=== PATIENT | male | born 1980 | race Caucasian/White ===

== ENCOUNTER 2022-02-17 22:17 | Emergency (ER) | payer MEDICAID ==
[~2022-02-17] VITALS: Ht 190.5 cm; Wt 85.2 kg
[2022-02-17 22:32] VITALS: BP 124/94
--- NOTE | 2022-02-17 22:42 | NUR ---
SPOKE TO DR MARKS CONCERNING PT'S LEFT FACIAL NUMBNESS. HE WILL PUT IN ORDERS FOR IMAGING.
[2022-02-17] MEDS ORDERED: iohexol 350MG/ML 100ml bottle IV ONE (22:47)
[2022-02-17 23:01] LABS: BASOPHILS % (AUTO) 0.2 % (0-1); EOSINOPHILS % (AUTO) 0 % (0-6); HEMATOCRIT 40.6 % (42.0-52.0); HEMOGLOBIN 13.7 g/dl (14.0-17.9); LYMPHOCYTES # (AUTO) 1.4 X10'3 (1.1-4.8); LYMPHOCYTES % (AUTO) 13.2 % (21-51); MEAN CORPUSCULAR HEMOGLOBIN 30.7 PG (27.0-31.0); MEAN CORPUSCULAR HGB CONC 33.8 g/dL (33.0-36.5); MEAN CORPUSCULAR VOLUME 90.8 FL (78-98); MEAN PLATELET VOLUME 7.5 FL (7.4-10.4); MONOCYTES # (AUTO) 0.9 X10'3 (0-0.9); MONOCYTES % (AUTO) 8.2 % (2-12); NEUTROPHILS # (AUTO) 8.2 X10'3 (1.8-7.7); NEUTROPHILS % (AUTO) 78.4 % (42-75); PLATELET COUNT 228 X10'3 (140-440); RED BLOOD COUNT 4.47 X10'6 (4.70-6.10); RED CELL DISTRIBUTION WIDTH 14.1 % (11.5-14.5); WHITE BLOOD COUNT 10.4 X10'3 (4.5-11.0)
[2022-02-17 23:11] LABS: ALANINE AMINOTRANSFERASE 27 U/L (12-78); ALBUMIN 3.6 G/DL (3.4-5.0); ALBUMIN/GLOBULIN RATIO 0.9 (1.1-1.5); ALKALINE PHOSPHATASE 58 IU/L (46-116); ANION GAP 7 (8-16); ASPARTATE AMINO TRANSFERASE 15 U/L (10-37); BILIRUBIN,TOTAL 0.3 MG/DL (0.1-1.0); BLOOD UREA NITROGEN 24 MG/DL (7-18); BUN/CREATININE RATIO 26.7 (5.4-32.0); CALCIUM 8.8 MG/DL (8.5-10.1); CHLORIDE 104 MMOL/L (99-107); GLUCOSE 104 MG/DL (70-104); POTASSIUM 4.1 MMOL/L (3.5-5.1); SODIUM 139 MMOL/L (135-145); TOTAL CARBON DIOXIDE 27.8 MMOL/L (24-32); TOTAL PROTEIN 7.4 G/DL (6.4-8.2); eGFR > 90 ML/MIN
[2022-02-19] MEDS ORDERED: GANC5GEL2 RIGHTEYE (07:15)
[2022-02-19] MEDS ORDERED: ERYT1OIN6 RIGHTEYE (07:15)
[2022-02-19] MEDS ORDERED: ACYC-129 PO (07:15)
== END 2022-02-18 06:44 | disposition left against medical advice (07) ==
LOC: ER 22:17
DX: J02.9 Acute pharyngitis, unspecified (principal); Z53.21 Procedure and treatment not carried out due to patient leaving prior to being seen by health care provider
CPT/HCPCS: 36415; 80053; 84145; 85025; J3490; Q9967

== ENCOUNTER 2022-02-18 12:48 | Emergency (ER) | payer MEDICAID ==
[~2022-02-18] VITALS: Ht 190.5 cm; Wt 85.0 kg
[2022-02-18] MEDS ORDERED: normal saline 1000ml 1,000 ML IV ONE (17:15)
[2022-02-18 17:41] LABS: BASOPHILS % (AUTO) 0.4 % (0-1); EOSINOPHILS # (AUTO) 0.1 X10'3 (0-0.9); EOSINOPHILS % (AUTO) 0.9 % (0-6); HEMATOCRIT 42.4 % (42.0-52.0); HEMOGLOBIN 14.1 g/dl (14.0-17.9); LYMPHOCYTES # (AUTO) 2.3 X10'3 (1.1-4.8); MEAN CORPUSCULAR HEMOGLOBIN 30.1 PG (27.0-31.0); MEAN CORPUSCULAR HGB CONC 33.2 g/dL (33.0-36.5); MEAN CORPUSCULAR VOLUME 90.5 FL (78-98); MEAN PLATELET VOLUME 7.7 FL (7.4-10.4); MONOCYTES # (AUTO) 0.7 X10'3 (0-0.9); MONOCYTES % (AUTO) 9.2 % (2-12); NEUTROPHILS % (AUTO) 61.5 % (42-75); PLATELET COUNT 251 X10'3 (140-440); RED BLOOD COUNT 4.68 X10'6 (4.70-6.10); RED CELL DISTRIBUTION WIDTH 14.4 % (11.5-14.5); WHITE BLOOD COUNT 8.1 X10'3 (4.5-11.0)
[2022-02-18] MEDS ORDERED: ondansetron/PF 4mg/2ml inj IV ONE (18:20)
[2022-02-18] MEDS ORDERED: morphine 4 MG/ML inj SYRINge IV ONE (18:20)
[2022-02-18 18:23] LABS: ALANINE AMINOTRANSFERASE 25 U/L (12-78); ALBUMIN 3.6 G/DL (3.4-5.0); ALKALINE PHOSPHATASE 55 IU/L (46-116); ANION GAP 7 (8-16); ASPARTATE AMINO TRANSFERASE 15 U/L (10-37); BILIRUBIN,TOTAL 0.3 MG/DL (0.1-1.0); BLOOD UREA NITROGEN 23 MG/DL (7-18); BUN/CREATININE RATIO 23.2 (5.4-32.0); CALCIUM 8.8 MG/DL (8.5-10.1); CHLORIDE 106 MMOL/L (99-107); CREATININE 0.99 MG/DL (0.60-1.10); GLUCOSE 90 MG/DL (70-104); POTASSIUM 4.3 MMOL/L (3.5-5.1); SODIUM 144 MMOL/L (135-145); TOTAL CARBON DIOXIDE 30.7 MMOL/L (24-32); TOTAL PROTEIN 7.3 G/DL (6.4-8.2); eGFR 83 ML/MIN
[2022-02-18] MEDS ORDERED: ampicillin/sulbac 3gm/NS 100ml 100 ML IV ONE (20:00)
[2022-02-19] MEDS ORDERED: erythromycin ophthalmic ointment 1gm tube EACHEYE ONE (00:55)
[2022-02-19] MEDS ORDERED: prednisoLONE acetate 1% ophth susp 5ml RIGHTEYE SCH (01:00)
--- NOTE | 2022-02-19 06:33 | NUR ---
Assumed patient care at this time. Report received from ELISSA Mg.
[2022-02-19] MEDS ORDERED: GANC5GEL2 RIGHTEYE (07:15)
[2022-02-19] MEDS ORDERED: ERYT1OIN6 RIGHTEYE (07:15)
[2022-02-19] MEDS ORDERED: ACYC-129 PO (07:15)
[2022-02-19 07:47] VITALS: BP 120/82
== END 2022-02-19 07:52 | disposition home or self-care (01) ==
LOC: ER 12:48
DX: B02.9 Zoster without complications (principal); H53.8 Other visual disturbances; R07.0 Pain in throat; R20.0 Anesthesia of skin; Z88.8 Allergy status to other drugs, medicaments and biological substances; Z79.2 Long term (current) use of antibiotics
CPT/HCPCS: 36415; 70490; 80053; 83605; 84145; 85025; 85651; 87040; 96361; 96365; 96375; 99285; J0295; J2270; J2405; J7030

== ENCOUNTER 2024-12-14 06:17 | Emergency (ER) | payer MEDICAID ==
[~2024-12-14] VITALS: Ht 190.5 cm; Wt 82.4 kg
[2024-12-14 06:29] VITALS: BP 128/69; PULSE 62; RESP 18; TEMP 98.4; O2SAT 98
--- NOTE | 2024-12-14 07:14 | Physician Documentation ---
History of Present Illness ~ Chief Complaint: Shoulder pain Stated Complaint: SHOULDER PAIN Time Seen by MD: 06:38 Primary Medical Doctor: none HPI 44-year-old male presents to the emergency department complaining of left shoulder pain, patient states that he has pain under his left scapula that started about a week ago, he works as a concrete laborer, denies any injury he can think of, has pain with all range of motion, feels as if there is a nodule or lump under his left scapula. Day of Onset: Dec 07, 2024 Timing/Duration: days Pain Location: left, posterior Mechanism: spontaneous Circumstances: spontaneous Able to move shoulder?: yes Severity: moderate Modifying Factors: improves with: immobilization Associated Symptoms: Reports: denies symptoms History Of: no pertinent history Tetanus within 5 years?: No Medication Reconciliation Allergies: Coded Allergies: prednisone (Unverified Allergy, Unknown, 02/18/22) Past Medical History Past Medical History: No Pertinent History Past Surgical History: no surgical history Alcohol Use: Other Review of Systems All Other Systems at this time: Reviewed and Negative Constitutional: Reports: no symptoms reported Musculoskeletal: Reports: see HPI, pain Physical Exam Vital Signs: RN Vital Signs have been reviewed: Yes, Temperature: 98.4, Source: Temporal, Heart Rate: 62, Respiratory Rate: 18, BP: 128/69, Pulse Oximetry: 98, Weight: 82.400 Oxygen Flow Rate: 0 General Appearance: alert, no apparent distress EENT: PERRL/EOMI, normal ENT inspection Shoulder: pain, soft tissue tenderness; No: dislocation, deformity, ecchymosis, swelling Shoulder There is tenderness to palpation at the margin of the scapula on the left over the ribs with a small area of tenderness, no palpable mass Progress Results/Orders Results/Orders Orders - MOE LEOS DO Uni Ribs With Pa Chest (12/14/24 06:41) Completed Orders - MOE LEOS DO Uni Ribs With Pa Chest (12/14/24 06:41) Vital Signs 12/14/24 06:29 Temp 98.4 Pulse 62 Resp 18 B/P (MAP) 128/69 Pulse Ox 98 O2 Flow Rate 0 EKG/XRAY/CT/US/VASC/MRI Chest X-Ray : Additional Comments [address] [address] DIAGNOSTIC RADIOLOGY Patient: ALFIE SANCHEZ Medical Record: [id number] [facility] : 1980, Age: 44 Sex: Male Location: ER Patient Status: [facility] ER Service Date/Time: 12/14/24640 Ordering Physician: MOE LEOS DO Exam: UNI RIBS WITH PA CHEST FRONTAL CHEST AND left RIB RADIOGRAPHS HISTORY: pain TECHNIQUE: Multiple views of the left ribs with frontal view of the chest. COMPARISON: None. FINDINGS: The trachea is midline. The cardiac silhouette and mediastinum are within normal limits. No pneumothorax, pleural effusions, or consolidations. There is no evidence of an acute fracture, dislocation, blastic, or lytic lesions. No radiopaque foreign bodies. No superficial soft tissue abnormalities. Impression: 1. No evidence of an acute rib fracture. No acute cardiopulmonary disease. Electronically Signed by:MITZY SHAW MD Date & Time: 12/14/24722 Dictated by: MITZY SHAW MD Dictation date and time: 12/14/24701 Primary Care Provider: NO PRIMARY CARE PROVIDER cc: MOE LEOS DO ~ Medical Decision Making Differential Dx:Considerations: Include: AC separation, Contusion, Dislocation, Fracture: Scapula, Fracture: Clavicle, Rotator cuff injury, Sprain Departure Disposition: HOME / SELF CARE / HOMELESS Impression: Primary Impression: Shoulder pain Additional Impression: Shoulder joint pain Condition: Stable Discharge Instructions: Muscle Strain, Shoulder Pain Additional Instructions: Please limit activity as I suspect you have a muscle strain, use medications as directed, pain does not improve with rest, you may need to see your primary care provider for further outpatient evaluation. Referrals: NO PRIMARY CARE PROVIDER (PCP) Prescriptions Lidocaine (Lidoderm) 5 % Adh..patch 1 PATCH TD DAILY for pain, #30 PATCH Apply 1 patch daily for 12 hours then off for 12 hours May sub 15 grams 4 pct lidocaine cream if patches are cost peohibitive Prov: MOE LEOS DO 12/14/24 Diclofenac Sodium (Voltaren Arthritis Pain) 1 % Gel..gram. 1 APPLIC TOP BID PRN for pain, #60 G Prov: MOE LEOS DO 12/14/24 Education Educated: Patient Educated regarding: diagnosis, treatment Signature Scribe Signature: None Attestation: Dictated by myself MOE LEOS DO Dec 14, 2024 07:14
--- NOTE | 2024-12-14 07:26 | RADIOLOGY REPORT ---
FRONTAL CHEST AND left RIB RADIOGRAPHS HISTORY: pain TECHNIQUE: Multiple views of the left ribs with frontal view of the chest. COMPARISON: None. FINDINGS: The trachea is midline. The cardiac silhouette and mediastinum are within normal limits. No pneumothorax, pleural effusions, or consolidations. There is no evidence of an acute fracture, dislocation, blastic, or lytic lesions. No radiopaque foreign bodies. No superficial soft tissue abnormalities. Impression: 1. No evidence of an acute rib fracture. No acute cardiopulmonary disease.
[2024-12-14] MEDS ORDERED: DICL20GE TOP (09:31)
[2024-12-14] MEDS ORDERED: LIDO-52 TD (09:31)
== END 2024-12-14 09:43 | disposition home or self-care (01) ==
LOC: ER 06:18
DX: M25.512 Pain in left shoulder (principal); Z88.8 Allergy status to other drugs, medicaments and biological substances
CPT/HCPCS: 71101; 99283